=== PATIENT | male | born 1960 | race Caucasian/White ===

== ENCOUNTER 2020-02-25 11:00 | Outpatient (CLI) | payer OTHER, SELFPAY ==
--- NOTE | ~2020-02-25 | XR_ITS ---
EXAMINATION: XR lumbar spine 2-3V DATE: 02/25/2020 11:21 INDICATION: Dorsalgia, unspecified TECHNIQUE: Anteroposterior and lateral views of the lumbar spine, and cone-down lateral view of the l umbosacral junction were obtained. COMPARISON: CT, 02/25/2013 FINDINGS: There is no fracture. There are 2 mm of chronic retrolisthesis of L5 on S1. The vertebral b bucky heights are normal. There is mild loss of intervertebral disc space height at L5-S1. Moderate fac et osteoarthritis is seen in the lower lumbar spine. Small degenerative osteophytes project from the anterior endplates of multiple vertebral bodies. The bowel gas pattern is normal. IMPRESSION: 1. Mild lumbar spondylosis without acute findings or significant interval change. Reviewed, dictated and finalized at location A. IMPRESSION: 1. Mild lumbar spondylosis without acute findings or significant interval jose ramon hanks
== END 2020-02-25 11:01 | disposition home or self-care (01) ==
PROVIDERS: PCP Internal Medicine; Visit Provider Clinical Nurse Specialist
DX: M54.9 Dorsalgia, unspecified (principal); M47.816 Spondylosis without myelopathy or radiculopathy, lumbar region
CPT/HCPCS: 72100

== ENCOUNTER → 2020-03-03 14:41 | Outpatient (CLI) | payer OTHER, SELFPAY ==
--- NOTE | ~2020-03-03 | MR_ITS ---
EXAMINATION: MR lumbar spine wo con DATE: 03/03/2020 15:28 INDICATION: Dorsalgia, unspecified. Low back pain. TECHNIQUE: Magnetic resonance imaging (MRI) of the lumbar spine was performed without intravenous con trast. Sequences included sagittal T2-weighted FSE, sagittal T2-weighted FS FSE, sagittal T1-weighted FSE, and axial T2-weighted FSE. COMPARISON: Lumbar spine radiographs 02/25/2020 FINDINGS: Bone alignment is normal. Vertebral body heights and intervertebral disc heights are normal . The distal spinal cord signal intensity is normal. The conus medullaris is at L1-L2. The following disc levels are specifically discussed: L1-L2: The disc does not extend beyond the endplate margin. There is mild left facet joint osteoarthr itis. There is no neural foraminal stenosis. There is no central canal stenosis. L2-L3: The disc does not extend beyond the endplate margin. There is no facet joint osteoarthritis. T here is no neural foraminal stenosis. There is no central canal stenosis. L3-L4: The disc is mildly bulging. There is mild bilateral facet joint osteoarthritis. There is mild bilateral neural foraminal stenosis. There is no central canal stenosis. L4-L5: The disc is mildly bulging. There is moderate right and mild left facet joint osteoarthritis. There is mild bilateral neural foraminal stenosis. There is no central canal stenosis. L5-S1: The disc does not extend beyond the endplate margin. There is severe bilateral facet joint ost eoarthritis. There is mild bilateral neural foraminal stenosis. There is no central canal stenosis. IMPRESSION: 1. Mild lumbar spondylosis. Reviewed, dictated and finalized at location A. IMPRESSION: 1. Mild lumbar spondylosis.
== END ==
PROVIDERS: Visit Provider Clinical Nurse Specialist
DX: M54.9 Dorsalgia, unspecified (principal); M47.816 Spondylosis without myelopathy or radiculopathy, lumbar region
CPT/HCPCS: 72148

== ENCOUNTER 2020-03-31 13:30 | Outpatient (RCR) | payer OTHER, SELFPAY ==
--- NOTE | 2020-03-07 13:51 | PTOPEVAL ---
Thank you for referring Higinio Alfonso to [facility]. Please review, sign, date and return this plan of care ASHLEY. Pt referred to therapy due to acute back pain. He demonstrates muscle weakness, decreased trunk motion with increased pain, and soft tissue restriction that would benefit from skilled therapy to improve. Cont PT 2x/wk x 6 wk. I agree with and certify that the following plan of care is medically necessary. Referring Physician Date Attending Provider: KIM Deng *PT Outpatient Evaluation Start: 03/07/20 12:38 Freq: Status: Active Protocol: Document 03/07/20 12:35 CAP (Rec: 03/07/20 13:04 CAP [id number]) Therapy Assessment Status Assessment Status Assessment Status Evaluation Outpatient Past Medical History Past Medical History No Past Medical/Surgical History Patient/Family Denies Significant Past Medical/ Surgical History Source of Past Medical History Patient Evaluation Information Problem Diagnosis dorsalgia Onset mid December Cause lifting Subjective Information He was helping someone on the Query Text:As Reported By Patient/ steps with his arms around the Family person. The person lost their balance backwards with pt going backwards as well. He denies landing on the ground with the movement. He reports he heard a pop in his back with increased pain. Reports he started seeing a chiropractor in January without relief of symptoms. He received manipulations. He has been taking medication and inversion table with some relief of his symptoms. Reports he will get increased pain with bending, walking or with stepping down motion. He works from a desk at a computer. He has increased pain with prolonged sitting. He tries to get up every few hours. Reports he has not been able to perform the yardwork since injury. He also has difficulty getting off the ground and has been avoiding this position. He does not perform a regular
--- NOTE | 2020-03-31 14:15 | PTOPEVAL ---
Thank you for referring Higinio Alfonso to [facility]. Please review, sign, date and return this plan of care ASHLEY. Pt has received 7 therapy visits to address his back pain. He demonstrates improved trunk range, improved strength, decreased pain and improved tolerance with daily activities. He has achieved his therapy goals at this time. Discharge skilled therapy services. I agree with and certify that the following plan of care is medically necessary. Referring Physician Date Admitting Provider: Attending Provider: KIM Deng Discharge Note *PT Outpatient Evaluation Start: 03/07/20 12:38 Freq: Status: Active Protocol: Document 03/31/20 13:31 CAP (Rec: 03/31/20 13:49 CAP [id number]) Therapy Assessment Status Assessment Status Assessment Status Discharge Outpatient Past Medical History Past Medical History No Past Medical/Surgical History Patient/Family Denies Significant Past Medical/ Surgical History Source of Past Medical History Patient Evaluation Information Problem Diagnosis dorsalgia Onset mid May Cause lifting Subjective Information He denies any pain in his back Query Text:As Reported By Patient/ over the past week. He denies Family any pain with the lifting task he has been performing. Denies increased pain with bending, walking or with stepping down motion. He denies increased pain with prolonged sitting of 1 hour. He tries to get up every 45 min to 1 hour. He denies problems with pushing the lawnmower. He is performing is HEP daily. He is not taking medication for pain relief, but cont to the inversion table with relief of his symptoms. Pain Assessment Timing of Pain Assessment Timing of Pain Assessment Re-assessment Pain Scale Pain Scale Used Numeric (1 - 10) Self Report Pain Assessment Right Lower Back Reported Pain Level 0 Pain Score Pain Score 0: Self Report Cervical and Lumbar ROM Lumbar ROM Lumbar Flexion Active Mid Oh,Floor Query Text:Hands to: Lumbar ROM WNL Lumbar Comments normal range without increased pain Cervical and Lumbar Muscle Testing Lumbar Strength Upper Abdominal Strength 4 Good Lumbar Functional Strength C
== END 2020-03-31 15:12 | disposition home or self-care (01) ==
LOC: ANHPT 13:30
PROVIDERS: Visit Provider Clinical Nurse Specialist
DX: M54.9 Dorsalgia, unspecified (principal)
CPT/HCPCS: 97014; 97110; 97140; 97161; G0283

== ENCOUNTER → 2023-03-22 10:12 | Outpatient (CLI) | payer OTHER, SELFPAY ==
--- NOTE | ~2023-03-22 | XR_ITS ---
Right Shoulder Technique: AP and axillary views were obtained. Clinical History: Pain Findings: No fracture or dislocation is seen. Osseous alignment is anatomic. The glenohumeral and acr omioclavicular joint spaces are preserved. Soft tissues are unremarkable. Impression: Unremarkable right shoulder radiographs. Reviewed, dictated and finalized at [facility]. Impression: Unremarkable right shoulder radiographs.
== END ==
PROVIDERS: PCP Internal Medicine; Visit Provider Nurse Practitioner
DX: M25.511 Pain in right shoulder (principal)
CPT/HCPCS: 73030

== ENCOUNTER 2023-03-22 10:18 | Outpatient (CLI) | payer OTHER, SELFPAY ==
[2023-03-22 18:16] LABS: Alanine Aminotransferase 23 U/L (6-50); Albumin Level 4.3 g/dL (3.5-5.1); Alkaline Phosphatase 57 U/L (38-126); Anion Gap 7 mmol/L (8-16); Aspartate Amino Transferase 30 U/L (17-59); Bilirubin,Total 0.9 mg/dL (0.2-1.3); Blood Urea Nitrogen 11 mg/dL (9-20); Calcium 8.9 mg/dL (8.4-10.2); Carbon Dioxide 28 mmol/L (22-30); Chloride 104 mmol/L (98-107); Cholesterol 184 mg/dL (0-200); Estimated Glomerular Filt Rate > 60; Glucose 90 mg/dL (65-110); HDL Direct 41 mg/dL; Potassium 4.6 mmol/L (3.4-5.0); Sodium 139 mmol/L (137-145); Triglycerides 103 mg/dL (<150)
[2023-03-22 18:22] LABS: Basophils Absolute Auto 0.1 K/mm3 (0.0-0.1); Eosinophils Absolute Auto 0.2 K/mm3 (0-0.3); Eosinophils Percent Auto 4.7 % (0-4.4); Hematocrit 46.8 % (42.0-52.0); Hemoglobin 16.1 g/dL (14.0-18.0); Immature Granulocyte Absolute 0.01 K/mm3 (0.00-0.031); Immature Granulocyte Percent A 0.2 % (0-0.5); Lymphocytes Absolute Auto 1.93 K/mm3 (0.9-3.2); Lymphocytes Percent Auto 37.5 % (18.3-44.2); Mean Corpuscular HGB Conc 34.4 g/dl (32-36); Mean Corpuscular Hemoglobin 30.6 pg (26-34); Mean Platelet Volume 10.4 fl (7.4-10.4); Monocytes Absolute Auto 0.4 K/mm3 (0.1-0.6); Monocytes Percent Auto 8.3 % (2.6-8.5); Neutrophils Absolute Auto 2.5 K/mm3 (1.3-6.7); Neutrophils Percent Auto 48.3 % (45.5-73.1); Platelet Count Result 168 k/mm3 (150-375); Red Blood Count 5.26 M/mm3 (4.6-6.20); Red Cell Distribution Width 12.7 % (11.5-14.5); White Blood Count 5.2 K/mm3 (4.5-10.0)
[2023-03-22 18:26] LABS: LDL Cholesterol Direct 113 mg/dL
[2023-03-22 18:44] LABS: Prostate Specific Antigen 1.6 ng/mL (< OR = 4.0)
== END 2023-03-22 10:19 | disposition home or self-care (01) ==
LOC: ANHGOSHLAB 10:20
PROVIDERS: PCP Internal Medicine; Visit Provider Internal Medicine
DX: Z13.228 Encounter for screening for other metabolic disorders (principal); Z12.5 Encounter for screening for malignant neoplasm of prostate
CPT/HCPCS: 36415; 80053; 80061; 84153; 85025; G0103

== ENCOUNTER 2024-05-01 00:10 | Day surgery (SDC) | payer OTHER, SELFPAY ==
[2024-04-22 09:34] VITALS: BMI 28.8
[2024-05-01 12:50] VITALS: BP 120/68; PULSE 53; RESP 20; TEMP 35.9; O2SAT 99
[2024-05-01] MEDS: LACTATED RINGERS 1,000 ML 150 ML IV CONT (12:58)
--- NOTE | 2024-05-01 13:15 | WPDANESEPPF ---
Anes - Initial Pre Proc Eval Procedure: Operation Date: 05/01/24 14:00 Proposed Procedures p Esophagogastroduodenoscopy - Marcin Arango MD Date/Time: 05/01/24 13:15 Surgeon: Marcin Arango MD Pre Op Diagnosis: Dysphagia Patient Data Age: 63 Gender: M Height: 1.78 m Weight: 89.4 kg Last Vital Signs Temp 96.6 F L 05/01/24 12:50 Pulse 53 L 05/01/24 12:50 Resp 20 05/01/24 12:50 BP 120/68 05/01/24 12:50 Pulse Ox 99 05/01/24 12:50 O2 Del Method Room Air 05/01/24 12:50 Allergies Allergy/AdvReac Type Severity Reaction Status Date / Time Penicillins Allergy Unknown Hives Verified 05/01/24 12:48 Home Medications Medication Instructions Recorded Confirmed Type tamsulosin 0.4 mg capsule (Flomax) 0.4 mg PO DAILY 02/25/20 04/22/24 History Patient hx anesthesia problems: none Family hx anesthesia problems: none Results Review: All pre-operative results and documents have been reviewed as part of the pre-operative evaluation. [facility] Past Medical History Medical History Chicken pox Pneumonia Sebaceous cyst Surgical History Surgical History H/O: vasectomy Family History Family History Sibling Hypertension Diabetes mellitus Father Head trauma Heart disease Mother Family history of ovarian cancer Diabetes mellitus Social History Social History (Updated 03/23/24 @ 09:40 by Yanna Hall [facility]) Smoking status: Never smoker Alcohol intake: never Substance use type: does not use Do You Feel Safe in your Home?: Yes Lack of Transportation: No Lack of Food: Never True Current Housing: I Have Housing Concerned About Future Housing: No Difficulty Paying Gas/Electric Bills: No Difficulty Paying for Meds: No Currently Unemployed: No Education: Bachelor's Degree Difficulty w/ Childcare or Family Care: No Living arrangements: other Additional living arrangements comments: with sp Anes - Eval Final PreProcedure Day of Procedure 05/01/24 13:15 Patient weight: normal Heart: regular rate and rhythm Lungs: clear to auscultation Airway: Mallampati scale class II Neurological: alert and oriented Last oral intake: >/= 8 hours ASA classification: II Emergent: no Anesthetic plan: proceed Anesthesia type and monitoring: general GIVS and standard monitoring Results Review: All pre-operative results and documents have been reviewed as part of the pre-operative evaluation. Informed Consent: The patient's anesthetic plan and its attendant risks and benefits were discussed with the patient/family/POA. Questions were solicited and answers provided to the satisfaction of the patient/family/POA.
--- NOTE | 2024-05-01 13:32 | P.HP_ITS ---
History of Present Illness History of Present Illness Consent: Risks, benefits, and alternatives have been discussed and questions answered. Patient agrees to proceed with procedure. Chief complaint: Dysphagia Narrative: Higinio Alfonso is a 63 year old male with dysphagia since September, mostly at throat level, never had egd Review of Systems Review of Systems: All systems reviewed & are unremarkable except as noted in HPI and below PMFSH Past Medical History Medical History Chicken pox Pneumonia Sebaceous cyst Surgical History Surgical History H/O: vasectomy Family History Family History Sibling Hypertension Diabetes mellitus Father Head trauma Heart disease Mother Family history of ovarian cancer Diabetes mellitus Social History Social History (Updated 03/23/24 @ 09:40 by Yanna Hall, [facility]) Smoking status: Never smoker Alcohol intake: never Substance use type: does not use Do You Feel Safe in your Home?: Yes Lack of Transportation: No Lack of Food: Never True Current Housing: I Have Housing Concerned About Future Housing: No Difficulty Paying Gas/Electric Bills: No Difficulty Paying for Meds: No Currently Unemployed: No Education: Bachelor's Degree Difficulty w/ Childcare or Family Care: No Living arrangements: other Additional living arrangements comments: with sp Meds Home Medications and Allergies Home Medications Medication Instructions Recorded Confirmed Type tamsulosin 0.4 mg capsule (Flomax) 0.4 mg PO DAILY 02/25/20 04/22/24 History Allergies Allergy/AdvReac Type Severity Reaction Status Date / Time Penicillins Allergy Unknown Hives Verified 05/01/24 12:48 Vital Signs Vital Signs - 24 hr 05/01/24 12:50 Temperature 96.6 F L Pulse Rate 53 L Respiratory Rate 20 Blood Pressure 120/68 Pulse Oximetry 99 Oxygen Delivery Room Air Exam Const: General: comfortable and no acute distress HENMT: Face/Nose/Sinus: Normal nares present Eyes: General: appearance normal, both eyes and all related structures Neck: Neck: no JVD Resp: Auscultation: clear to auscultation bilaterally Cardio: Rate: regular rate Rhythm: regular rhythm GI: Inspection: non-distended GI Palp: Yes Soft to palpation Skin: General skin exam: normal color Neuro: General: gait normal Speech: normal speech Extrem: General: normal to inspection Psych: Mental Status: mental status grossly normal Assessment and Plan Assessment and plan (1) Difficulty swallowing: Code(s): R13.10 - Dysphagia, unspecified Status: Acute Assessment and Plan: egd
[2024-05-01 13:38] VITALS: BP 106/56; PULSE 53; RESP 16; O2SAT 95
[2024-05-01 13:48] VITALS: BP 102/52; PULSE 50; RESP 21; O2SAT 96
[2024-05-01 13:58] VITALS: BP 102/56; PULSE 51; RESP 20; O2SAT 98
== END 2024-05-01 14:06 | disposition home or self-care (01) ==
PROVIDERS: PCP Internal Medicine; Referring Provider Clinical Nurse Specialist; Visit Provider Internal Medicine Gastroenterology
PROC: 0DJ08ZZ Inspection of Upper Intestinal Tract, Via Natural or Artificial Opening Endoscopic (ICD-10-PCS; CPT 43235; principal; 2024-05-01 14:00)
DX: R13.10 Dysphagia, unspecified (principal)
CPT/HCPCS: 43239; 88305; J2704; J7120